=== PATIENT | male | born 1970 | race Hispanic/Latino ===

== ENCOUNTER 2018-01-31 09:10 | Inpatient (IN) | payer OTHER ==
[~2018-01-31] VITALS: Ht 177.8 cm; Wt 103.0 kg
[~2018-01-31 09:10] MED LIST: ASPIRIN EC81 M1 PO; CRESTOR10 M1 PO; LABETALOL HCL100 M1 PO; LOSARTAN POTASS50 M1 PO
--- NOTE | 2018-01-31 09:51 | ED CARDIAC/CP/PALPITATIONS ---
History of Present Illness General Chief Complaint: Chest Pain Stated Complaint: CP, "IT'S TIGHT IN MY CHEST. TINGLING IN FINGERS." Source: patient Exam Limitations: no limitations Vital Signs & Intake/Output Vital Signs & Intake/Output Vital Signs Date Time Temp Pulse Resp B/P B/P Pulse O2 O2 Flow FiO2 Mean Ox Delivery Rate 01/31 1438 98.0 58 20 111/71 99 Room Air 01/31 1213 97.6 56 20 114/66 98 Room Air 01/31 1043 97.2 58 16 134/80 99 Room Air 01/31 0935 96.7 59 14 137/83 97 Room Air Allergies Coded Allergies: No Known Allergies (08/05/17) Reconcile Medications Ascorbate Calcium (Vitamin C) (Unknown Strength) TABLET (Unknown Dose) PO DAILY SUPPLEMENT (Reported) Aspirin (Ecotrin*) 81 MG TABLET.DR 1 TAB PO DAILY HEART HEALTH (Reported) Cholecalciferol (Vitamin D3) (Vitamin D) (Unknown Strength) TABLET (Unknown Dose) PO DAILY SUPPLEMENT (Reported) Cyanocobalamin (Vitamin B-12) (Unknown Strength) TABLET (Unknown Dose) PO DAILY SUPPLEMENT (Reported) Flaxseed Oil (Flax Oil) (Unknown Strength) CAPSULE (Unknown Dose) PO DAILY SUPPLEMENT (Reported) Labetalol HCl 100 MG TABLET 1 TAB PO BID HTN (Reported) Losartan Potassium 50 MG TABLET 1 TAB PO QHS HTN (Reported) [place]-3 Fatty Acids/Fish Oil (Fish Oil 1,000 MG Softgel) (Unknown Strength) CAPSULE (Unknown Dose) PO DAILY SUPPLEMENT (Reported) Triage Note: PT PRESENTS TO THE ER C/O "SERIOUS CHEST PAIN 07/29" PT STATES THAT HIS HANDS ARE TINGLING/NUMBNESS. ONSET OVER 1 MONTH BUT THE CHEST PAIN PER PT IS 2 WEEKS AND PAIN IS INCREASING.. PT STATES HE FEELS TIRED AND HE IS NOT HUNGRY, PT STATES HE HAS BEEN SWEATING ALOT.. PT ALSO C/O DIFFERENT SLOW LIKE BREATHING..PT FEELS LIKE HIS CHEST IS COMPRESSED Triage Nurses Notes Reviewed? yes Onset: Gradual Duration: week(s): (2), changing over time, continues in ED, getting worse Timing: recent history Quality/Severity: severe, pressure, sharp Location: substernal, central Radiation: arms Activities at Onset: activity Prior Chest Pain/Card Workup: no prior chest pain, no prior cardiac workup Modifying Factors: Worsens With: breathing, movement, palpation. Nitro Today/Relief: no nitro taken today Aspirin Today: 81 mg x 4, provided at home (1), provided by ED (3) Associated Symptoms: abdominal pain, diaphoresis, dizziness, shortness of breath , nausea/vomiting, weakness HPI: 47-year-old male past medical history of hypertension, hyperlipidemia, non- insulin-dependent diabetes. Monitor evaluation of chest pain and shortness of breath. Patient states that he's been having chest pain intermittently for the past month. He states that the pain is gradually becoming worse and more frequent. The pain is located diffusely in the chest and radiates to the left arm/shoulder. He describes the pain as pressure that is intermittently sharp and "pinching". He states that it is worse with ambulation and leaning forward resolved somewhat at rest and leaning backwards. He also reports dizziness light headedness of palpitations with exertion. He reports associated shortness of breath diaphoresis numbness and tingling in the left fingers. The pain is worse with breathing. He did see a master technician on 01/29 and a echocardiogram and stress test ordered but not yet completed. He does not drink smoke or use any drugs. No personal history of CORNARY artery disease. He reports decreased appetite and fatigue. No weight loss. He does report family history of heart disease in his father and grandfather. Past History Travel History Traveled to [place] past 21 day No Medical History Any Pertinent Medical History? see below for history Cardiovascular: hypertension, HLD Endocrine: diabetes Surgical History Surgical History: non-contributory Psychosocial History Who do you live with Spouse What is your primary language Persian Tobacco Use: Never used Family History Hx Contributory? No Review of Systems Review of Systems Constitutional: Reports: chills, diaphoresis. EENTM: Reports: no symptoms. Respiratory: Reports: see HPI, short of breath. Cardiovascular: Reports: see HPI, chest pain, palpitations. GI: Reports: abdominal pain, nausea. Genitourinary: Reports: no symptoms. Musculoskeletal: Reports: no symptoms. Skin: Reports: no symptoms. Neurological/Psychological: Reports: no symptoms. Hematologic/Endocrine: Reports: no symptoms. Immunologic/Allergic: Reports: no symptoms. All Other Systems: Reviewed and Negative Physical Exam Physical Exam General Appearance: well developed/nourished, no apparent distress, alert, awake , anxious Head: atraumatic, normal appearance Eyes: Bilateral: normal appearance, PERRL, EOMI. Ears, Nose, Throat: normal pharynx, normal ENT inspection, hearing grossly normal Neck: normal inspection, supple, full range of motion Respiratory: normal breath sounds, no respiratory distress, lungs clear, CHEST WALL TENDERNESS PALPATION OVER THE STERNUM Cardiovascular: regular rate/rhythm, normal peripheral pulses Peripheral Pulses: 2+ radial (R), 2+ radial (L) Gastrointestinal: normal bowel sounds, soft, no organomegaly, tenderness ( EPIGASTRIC ) Back: normal inspection, normal range of motion, no vertebral tenderness Extremities: normal inspection, normal range of motion, no edema Neurologic/Psych: no motor/sensory deficits, awake, alert, oriented x 3, normal gait Skin: intact, normal color, warm/dry Lymphatic: no anterior cervical mimi Core Measures ACS in differential dx? Yes CVA/TIA Diagnosis No Sepsis Present: No Sepsis Focused Exam Completed? No Progress Differential Diagnosis: AMI, aortic dissection, cholecystitis, CHF/pulm edema, costochondritis, musculoskeletal pain, pancreatitis, pericarditis, pneumonia, pneumothorax, PSVT, pulmonary embolism, PUD/GERD, PVCs/PACs, rib fracture, unstable angina Plan of Care: Orders Procedure Date/time Status TROPONIN LEVEL 01/31 1330 Complete EKG 01/31 1330 Active D-DIMER 01/31 1011 Complete Add-on Test (ER Only) 01/31 1008 Active TSH REFLEX 01/31 0954 Complete MAGNESIUM 01/31 0954 Complete LIPASE 01/31 0954 Complete B-TYPE NATRIURETIC PEP (BNP) 01/31 0954 Complete Telemetry/Activities Volunteer 01/31 0953 Active Add-on Test (ER Only) 01/31 0951 Active URINE DRUG SCREEN FOR ER ONLY 01/31 0951 Complete URINALYSIS 01/31 0951 Complete TROPONIN LEVEL 01/31 0921 Complete COMPREHENSIVE METABOLIC PANEL 01/31 0921 Complete CBC WITHOUT DIFFERENTIAL 01/31 0921 Complete EKG 01/31 0912 Active Laboratory Tests 01/31/18 1412: Troponin I < 0.01 01/31/18 1020: Urine Opiates Screen < 100, Methadone Screen < 40, Barbiturate Screen < 60, Ur Phencyclidine Scrn < 6.00, Amphetamines Screen < 100, U Benzodiazepines Scrn < 85, Urine Cocaine Screen < 50, Urine Cannabis Screen < 5.00, Urine Color YEL, Urine Clarity CLEAR, Urine pH 6.5, Ur Specific [place] 1.020, Urine Protein NEG, Urine Ketones NEG, Urine Nitrite NEG, Urine Bilirubin NEG, Urine Urobilinogen 0.2, Ur Leukocyte Esterase NEG, Ur Microscopic EXAM NOT REQUIRED, Urine Hemoglobin NEG, Urine Glucose NEG 01/31/18 1015: D-Dimer High Sensitivty 208 01/31/18 0954: Anion Gap 12, Estimated GFR > 60, BUN/Creatinine Ratio 20.0, Glucose 215 H, Calcium 9.4, Magnesium 2.0, Total Bilirubin 0.7, AST 18, ALT 34, Alkaline Phosphatase 70, Troponin I < 0.01, Yns-D-Efpncqbwybd Pept 28.1, Total Protein 7.0, Albumin 4.2, Globulin 2.8, Albumin/Globulin Ratio 1.5, Lipase 114, TSH &T3 &Free T4 Intrp 0.705, CBC w Diff NO MAN DIFF REQ, RBC 4.65 L, MCV 89.9, MCH 30.8, MCHC 34.2, RDW 13.2, MPV 8.6, Gran % 69.8, Lymphocytes % 22.7, Monocytes % 6.4, Eosinophils % 0.8, Basophils % 0.3, Absolute Granulocytes 4.2, Absolute Lymphocytes 1.4, Absolute Monocytes 0.4, Absolute Eosinophils 0, Absolute Basophils 0 Patient seen and evaluated. He is reporting chest pain gradually worsening over the past month. It is worse on exertion and associated with dizziness lightheadedness presyncope and palpitations while walking. It is also worse with laying backwards he does have some chest wall and epigastric tenderness to palpation. Patient was initially medicated with aspirin and Pepcid and reported some improvement. We'll check some basic labs including d-dimer and troponin. Chest x-ray ordered. EKG ordered. Initial labs are within normal limits chest x-ray is clear EKG shows some nonspecific ST-T wave changes but is not significant change. Patient is reporting continued now worsening chest pain after taking aspirin and PEPCID. Vital signs stable. Nitroglycerin ordered. Also check a CTA of the chest and pelvis to evaluate for aortic dissection. HEART SCORE IS 5-6. Patient may require admission to the hospital for further evaluation of this continued chest pain. Patient reports resolution of chest pain after nitroglycerin. He does still report palpitations and dizziness with exertion. CTA is still pending. Spoke with Dr. Armendariz, it operations specialist master technician, he recommends admission to rule out acute coronary syndrome. CTA is negative for any acute findings. Patient continues to report improved symptoms after nitroglycerin. Vital signs are stable. Patient will be admitted to telemetry to rule out acute coronary syndrome. Case discussed with Dr. Bertrand he agrees. Diagnostic Imaging: Viewed by Me: Radiology Read, CT Scan. Discussed w/RAD: Radiology Read, CT Scan. Radiology Impression: PATIENT: VICTOR MAUNEL JOHNSTON PRESENT AGE: 47 PATIENT ACCOUNT NO: [id number] : 68 LOCATION: [facility] ORDERING PHYSICIAN: Kel ADEN SERVICE DATE: 01/31/18 EXAM TYPE: CAT - CT ABD & PELVIS ANGIOGRAM; CTA CHEST-AORTIC DISSECTION EXAMINATION: CT CHEST WITHOUT AND WITH CONTRAST CT ANGIOGRAM ABDOMEN AND PELVIS CLINICAL INFORMATION: Chest pain, shortness of breath, left arm numbness. COMPARISON: None TECHNIQUE: Multidetector volumetric CT imaging of the chest was obtained before and after the administration of 95 mL of Optiray 320 intravenous contrast without immediate adverse reactions. Multiple axial images were obtained through the abdomen and pelvis. Axial MIP volume rendering provided. Sagittal and coronal reformatted images were obtained. DLP: 1556.0 mGy-cm FINDINGS: LUNGS: There is a 0.7 cm round noncalcified nodule along the fissural surface of the right middle lobe, sagittal image 97 and axial image 28 from series 5. There is a 0.3 cm noncalcified pulmonary nodule in the periphery of the right middle lobe as seen on axial image 38 from series 5. There is a 0.5 cm pleural-based noncalcified pulmonary nodule in the posterior right lower lobe as seen on axial image 38 from series 5. A 0.3 cm pleural-based noncalcified pulmonary nodule along the posterior right lower lobe is seen on axial image 37 from series 5. There is a 0.3 cm noncalcified pulmonary nodule in the right middle lobe, axial image 38. There is a 0.3 cm pleural-based noncalcified pulmonary nodule in the periphery of the left lower lobe, axial image 43 from series 5. There is a 0.3 cm nodular density along the left major fissure, axial image 30 from series 5. There is a 0.5 cm pleural-based noncalcified pulmonary nodule in the lateral aspect of the left upper lobe, axial image 20. There is no focal pulmonary consolidation. No pulmonary mass. MEDIASTINUM: The cardiac size is normal. No pericardial effusion. There is normal diameter of the thoracic and abdominal aorta. There is no evidence of intramural hematoma or dissection of the aorta. The bilateral common iliac arteries, internal and external iliac arteries are also normal in diameter. The pulmonary arteries are normal in diameter. PLEURA: There is no pleural effusion. No pleural mass or thickening. AXILLA: No lymphadenopathy. ABDOMEN AND PELVIS: The liver, spleen, gallbladder, pancreas, and adrenal glands are within normal limits. The kidneys are normal in size. Normal cortical enhancement noted bilaterally. No hydronephrosis. No perinephric fat stranding. There is a 0.5 cm nonobstructing calyceal stone in the upper to mid part of the right kidney, better seen on sagittal image 97. There is a 2.8 cm cortical cyst in the upper pole of the right kidney. There is a 0.4 cm nonobstructing stone in the upper to mid part of the left kidney, sagittal image 37. The ureters are not dilated. No ureteral stone. The urinary bladder is full and unremarkable. The stomach, duodenum, small-bowel loops and colon are unremarkable. The appendix is visualized and without evidence of acute appendicitis. There is no free fluid or free air in the abdomen or pelvis. No mesenteric, retroperitoneal or pelvic adenopathy. The prostate and seminal vesicles are unremarkable. Partial visualization of surgical hardware of the anterior lower cervical spine fusion. No aggressive bony lesion or acute bone fracture. IMPRESSION: No evidence of aortic aneurysm or dissection in the chest or abdomen. No acute PE. Multiple bilateral noncalcified pulmonary nodules. Follow up based on Fleischner criteria is suggested. Bilateral nonobstructing renal stones. Right renal cortical cyst. Various management parameters for solitary pulmonary nodules are in the literature. According to the Fleischner Society, recommendations for pulmonary nodules are as follows: Nodule size < or = to 4 mm in LOW RISK PATIENTS: No follow up needed. Nodule size < or = to 4 mm in HIGH RISK PATIENTS: Follow up CT at 12 months; if unchanged, no further follow up. Nodule size > 4-6 mm in LOW RISK PATIENTS: Follow up CT at 12 months; if unchanged, no further follow up. Nodule size > 4-6 mm in HIGH RISK PATIENTS: Initial follow up CT at 6-12 months, then at 18-24 months if no change. Nodule size > 6-8 mm in LOW RISK PATIENTS: Initial follow up CT at 6-12 months, then at 18-24 months if no change. Nodule size > 6-8 mm in HIGH RISK PATIENTS: Initial follow up CT at 3-6 months, then 9- 12 months and 24 months if no change. Nodule size > 8 mm in LOW RISK PATIENTS: Follow up CT at around 3, 9, and 24 months, dynamic contrast-enhanced CT, PET, and/or biopsy. Nodule size > 8 mm in HIGH RISK PATIENTS: Same as for low-risk patients. DICTATED BY: Antionette Walker MD DATE/TIME DICTATED:01/31/181421 LACQUER POLISHER:ELIAS DATE/TIME TRANSCRIBED:01/31/181421 CONFIDENTIAL, DO NOT COPY WITHOUT APPROPRIATE AUTHORIZATION. <Electronically signed in Other Vendor System> SIGNED BY: Antionette Walker MD 01/31/18 1518 CXR Impression: PATIENT: VICTOR MANUEL JOHNSTON PRESENT AGE: 47 PATIENT ACCOUNT NO: [id number] : 68 LOCATION: [facility] ORDERING PHYSICIAN: Kel ADEN SERVICE DATE: 01/31/18 EXAM TYPE: RAD - XRY-CHEST XRAY, TWO VIEWS EXAMINATION: XR CHEST CLINICAL INFORMATION: Chest pain, shortness of breath. COMPARISON: Chest done on 05/02/2014. TECHNIQUE: 2 views of the chest were obtained. FINDINGS: No significant abnormality is noted involving the heart , lungs, mediastinum, bony thorax or soft tissues. IMPRESSION: No acute cardiopulmonary disease, unchanged since prior study. Please note that previous CT detected several subcentimeter pulmonary nodules are not reproduced in the current study likely related to difference in technique. DICTATED BY: Joon Ortiz MD DATE/TIME DICTATED:01/31/181028 LACQUER POLISHER:ELIAS DATE/ TIME TRANSCRIBED:01/31/181028 CONFIDENTIAL, DO NOT COPY WITHOUT APPROPRIATE AUTHORIZATION. Initial ED EKG: normal sinus rhythm, nonspecific ST T wave chg (INFERIOR) Prior EKG: unchanged Repeat EKG: unchanged Rhythm Strip: normal sinus rhythm Departure Departure Disposition: STILL A PATIENT Condition: Stable Clinical Impression Primary Impression: Chest pain Qualifiers: Chest pain type: unspecified Qualified Code: R07.9 - Chest pain, unspecified Referrals: Lilli SALDAÑA,Paddy Heard (PCP/Family) Departure Forms: Customer Survey General Discharge Information Admission Note Spoke With: Valeriy Woodard MD Documentation of Exam: Documentation of any treatments & extenuating circumstances including Concerns Regarding Discharge (functional status, medication knowledge or non-compliance, living conditions, etc.) that warrant an admission rather than observation: Chest pain worse on exertion responsive to nitroglycerin multiple risk factors and family history [Telemetry, serial labs, serial EKGs, cardiology consult, echocardiogram, stress test, medication adjustment] Critical Care Note Critical Care Note Critical Care Time: non-applicable
[2018-01-31 10:05] LABS: ABSOLUTE BASOPHIL COUNT 0 /CUMM (0.0-0.2); ABSOLUTE EOSINOPHIL COUNT 0 /CUMM (0.0-0.7); ABSOLUTE GRANULOCYTE CT 4.2 /CUMM (1.4-6.5); ABSOLUTE LYMPH COUNT 1.4 /CUMM (1.2-3.4); ABSOLUTE MONOCYTE COUNT 0.4 /CUMM (0.10-0.60); BASOPHIL % 0.3 % (0.0-2.0); EOSINOPHIL % 0.8 % (0-5); GRANULOCYTE % 69.8 % (42.2-75.2); HEMATOCRIT 41.8 % (42-52); MEAN CORPUSCULAR HGB 30.8 PG (27.0-31.0); MEAN CORPUSCULAR HGB CONC 34.2 G/DL (33.0-37.0); MEAN CORPUSCULAR VOLUME 89.9 FL (80.0-94.0); MEAN PLATELET VOLUME 8.6 FL (7.4-10.4); PLATELET COUNT 167 /CUMM (130-400); RBC DISTRIBUTION WIDTH 13.2 % (11.5-14.5); RED BLOOD CELL CT 4.65 /CUMM (4.70-6.10); WHITE BLOOD CELL COUNT 6.1 /CUMM (4.8-10.8)
--- NOTE | 2018-01-31 10:35 | RADIOLOGY REPORT ---
EXAMINATION: XR CHEST CLINICAL INFORMATION: Chest pain, shortness of breath. COMPARISON: Chest done on 05/02/2014. TECHNIQUE: 2 views of the chest were obtained. FINDINGS: No significant abnormality is noted involving the heart, lungs, mediastinum, bony thorax or soft tissues. IMPRESSION: No acute cardiopulmonary disease, unchanged since prior study. Please note that previous CT detected several subcentimeter pulmonary nodules are not reproduced in the current study likely related to difference in technique.
[2018-01-31] MEDS ORDERED: VITAMIN C500 M6 PO (12:36)
[2018-01-31] MEDS ORDERED: VITAMIN B-121000 MC3 PO (12:36)
[2018-01-31] MEDS ORDERED: VITAMIN D2000 UNI1 PO (12:36)
[2018-01-31] MEDS ORDERED: FLAX OIL1000 M1 PO (12:37)
[2018-01-31] MEDS ORDERED: FISH OIL 1,0001 EAC1 PO (12:37)
--- NOTE | 2018-01-31 15:18 | CT SCAN REPORT ---
EXAMINATION: CT CHEST WITHOUT AND WITH CONTRAST CT ANGIOGRAM ABDOMEN AND PELVIS CLINICAL INFORMATION: Chest pain, shortness of breath, left arm numbness. COMPARISON: None TECHNIQUE: Multidetector volumetric CT imaging of the chest was obtained before and after the administration of 95 mL of Optiray 320 intravenous contrast without immediate adverse reactions. Multiple axial images were obtained through the abdomen and pelvis. Axial MIP volume rendering provided. Sagittal and coronal reformatted images were obtained. DLP: 1556.0 mGy-cm FINDINGS: LUNGS: There is a 0.7 cm round noncalcified nodule along the fissural surface of the right middle lobe, sagittal image 97 and axial image 28 from series 5. There is a 0.3 cm noncalcified pulmonary nodule in the periphery of the right middle lobe as seen on axial image 38 from series 5. There is a 0.5 cm pleural-based noncalcified pulmonary nodule in the posterior right lower lobe as seen on axial image 38 from series 5. A 0.3 cm pleural-based noncalcified pulmonary nodule along the posterior right lower lobe is seen on axial image 37 from series 5. There is a 0.3 cm noncalcified pulmonary nodule in the right middle lobe, axial image 38. There is a 0.3 cm pleural-based noncalcified pulmonary nodule in the periphery of the left lower lobe, axial image 43 from series 5. There is a 0.3 cm nodular density along the left major fissure, axial image 30 from series 5. There is a 0.5 cm pleural-based noncalcified pulmonary nodule in the lateral aspect of the left upper lobe, axial image 20. There is no focal pulmonary consolidation. No pulmonary mass. MEDIASTINUM: The cardiac size is normal. No pericardial effusion. There is normal diameter of the thoracic and abdominal aorta. There is no evidence of intramural hematoma or dissection of the aorta. The bilateral common iliac arteries, internal and external iliac arteries are also normal in diameter. The pulmonary arteries are normal in diameter. PLEURA: There is no pleural effusion. No pleural mass or thickening. AXILLA: No lymphadenopathy. ABDOMEN AND PELVIS: The liver, spleen, gallbladder, pancreas, and adrenal glands are within normal limits. The kidneys are normal in size. Normal cortical enhancement noted bilaterally. No hydronephrosis. No perinephric fat stranding. There is a 0.5 cm nonobstructing calyceal stone in the upper to mid part of the right kidney, better seen on sagittal image 97. There is a 2.8 cm cortical cyst in the upper pole of the right kidney. There is a 0.4 cm nonobstructing stone in the upper to mid part of the left kidney, sagittal image 37. The ureters are not dilated. No ureteral stone. The urinary bladder is full and unremarkable. The stomach, duodenum, small-bowel loops and colon are unremarkable. The appendix is visualized and without evidence of acute appendicitis. There is no free fluid or free air in the abdomen or pelvis. No mesenteric, retroperitoneal or pelvic adenopathy. The prostate and seminal vesicles are unremarkable. Partial visualization of surgical hardware of the anterior lower cervical spine fusion. No aggressive bony lesion or acute bone fracture. IMPRESSION: No evidence of aortic aneurysm or dissection in the chest or abdomen. No acute PE. Multiple bilateral noncalcified pulmonary nodules. Follow up based on Fleischner criteria is suggested. Bilateral nonobstructing renal stones. Right renal cortical cyst. Various management parameters for solitary pulmonary nodules are in the literature. According to the Fleischner Society, recommendations for pulmonary nodules are as follows: Nodule size < or = to 4 mm in LOW RISK PATIENTS: No follow up needed. Nodule size < or = to 4 mm in HIGH RISK PATIENTS: Follow up CT at 12 months; if unchanged, no further follow up. Nodule size > 4-6 mm in LOW RISK PATIENTS: Follow up CT at 12 months; if unchanged, no further follow up. Nodule size > 4-6 mm in HIGH RISK PATIENTS: Initial follow up CT at 6-12 months, then at 18-24 months if no change. Nodule size > 6-8 mm in LOW RISK PATIENTS: Initial follow up CT at 6-12 months, then at 18-24 months if no change. Nodule size > 6-8 mm in HIGH RISK PATIENTS: Initial follow up CT at 3-6 months, then 9-12 months and 24 months if no change. Nodule size > 8 mm in LOW RISK PATIENTS: Follow up CT at around 3, 9, and 24 months, dynamic contrast-enhanced CT, PET, and/or biopsy. Nodule size > 8 mm in HIGH RISK PATIENTS: Same as for low-risk patients.
--- NOTE | 2018-01-31 16:32 | History & Physical ---
Mark SALDAÑA,Rupalining 01/31/18 1631: General Information and [facility] MD Statement: I have seen and personally examined VICTOR MANUEL JOHNSTON and documented this H&P. The patient is a 47 year old M who presented with a patient stated chief complaint of [CP]. Source of Information: patient, family, old records Exam Limitations: no limitations History of Present Illness: The sees a 47-year-old male with past medical history significant for hypertension, hyperlipidemia, ggc-tcagtnq-uuzhcmkhy diabetes, nephrolithiasis, hypogonadism, obstructive sleep apnea, cervical disc herniation, who comes in for chief complaint of chest pain. Patient describes it as a "pinch in my heart " and as a tightness in his chest can get up to a 10 out of 10. These episodes started about 2 weeks ago and the pain has been persistent since but is exacerbated by exertion or emotion. Pain has gradually gotten worse over the past 2 weeks and is associated with diaphoresis, left-sided neck pain and hand tingling. He also states that the pain gets worse with deep inspiration and sometimes wakes him up at night. He denies a positional nature to the pain and states that nothing really makes it better, however he did respond to nitroglycerin in ED. He saw his project management analyst on January 29 for same complaint. At that time he was scheduled for a stress echo and an echo cardiogram which are yet to be done. Today, he took aspirin at home and received 2 in the ED. He states that he has been compliant with his blood pressure and cardiac medications. He denies any drinking smoking or IV drug abuse. He does state that he works 2 jobs and that his work has been getting increasingly stressful, particularly over the past 2 weeks. Family history significant for a brother with what sounds like CHF and a prolonged 6 week hospitalization. Grandfather had AK and father has diabetes. Allergies/Medications Allergies: Coded Allergies: No Known Allergies (08/05/17) Home Med list Ascorbate Calcium (Vitamin C) (Unknown Strength) TABLET (Unknown Dose) PO DAILY SUPPLEMENT (Reported) Aspirin (Ecotrin*) 81 MG TABLET. 1 TAB PO DAILY HEART HEALTH (Reported) Cholecalciferol (Vitamin D3) (Vitamin D) (Unknown Strength) TABLET (Unknown Dose) PO DAILY SUPPLEMENT (Reported) Cyanocobalamin (Vitamin B-12) (Unknown Strength) TABLET (Unknown Dose) PO DAILY SUPPLEMENT (Reported) Flaxseed Oil (Flax Oil) (Unknown Strength) CAPSULE (Unknown Dose) PO DAILY SUPPLEMENT (Reported) Labetalol HCl 100 MG TABLET 1 TAB PO BID HTN (Reported) Losartan Potassium 50 MG TABLET 1 TAB PO QHS HTN (Reported) [place]-3 Fatty Acids/Fish Oil (Fish Oil 1,000 MG Softgel) (Unknown Strength) CAPSULE (Unknown Dose) PO DAILY SUPPLEMENT (Reported) Compliance With Home Meds: GOOD Past History Travel History Traveled to [place] past 21 day No Medical History Cardiovascular: hypertension, HLD Endocrine: diabetes Surgical History Surgical History: non-contributory Review of Systems Review of Systems Constitutional: Reports: see HPI. Exam & Diagnostic Data Last 24 Hrs of Vital Signs/I&O Vital Signs Date Time Temp Pulse Resp B/P B/P Pulse O2 O2 Flow FiO2 Mean Ox Delivery Rate 01/31 2246 98.2 61 18 116/74 99 Room Air 01/31 2138 98.0 57 16 113/76 99 Room Air 01/31 2134 57 113/76 01/31 2134 57 113/76 01/31 1849 98.1 57 18 140/80 99 Room Air 01/31 1438 98.0 58 20 111/71 99 Room Air 01/31 1213 97.6 56 20 114/66 98 Room Air 01/31 1043 97.2 58 16 134/80 99 Room Air 01/31 0935 96.7 59 14 137/83 97 Room Air Intake & Output 01/31 1600 01/31 0800 01/31 0000 Intake Total Output Total Balance Patient 103.419 kg Weight Weight Reported by Patient Measurement Method Physical Exam General Appearance Alert, Oriented X3, Cooperative, Mild Distress HEENT Atraumatic, PERRLA, EOMI Neck Supple, No JVD Cardiovascular Regular Rate, Normal S1, Normal S2, No Murmurs Lungs Normal Air Movement Abdomen Soft, No Tenderness Last 24 Hrs of Labs/David: Laboratory Tests 01/31/18 1412: Troponin I < 0.01 01/31/18 1020: Urine Opiates Screen < 100, Methadone Screen < 40, Barbiturate Screen < 60, Ur Phencyclidine Scrn < 6.00, Amphetamines Screen < 100, U Benzodiazepines Scrn < 85, Urine Cocaine Screen < 50, Urine Cannabis Screen < 5.00, Urine Color YEL, Urine Clarity CLEAR, Urine pH 6.5, Ur Specific [place] 1.020, Urine Protein NEG, Urine Ketones NEG, Urine Nitrite NEG, Urine Bilirubin NEG, Urine Urobilinogen 0.2, Ur Leukocyte Esterase NEG, Ur Microscopic EXAM NOT REQUIRED, Urine Hemoglobin NEG, Urine Glucose NEG 01/31/18 1015: D-Dimer High Sensitivty 208 01/31/18 0954: Anion Gap 12, Estimated GFR > 60, BUN/Creatinine Ratio 20.0, Glucose 215 H, Calcium 9.4, Magnesium 2.0, Total Bilirubin 0.7, AST 18, ALT 34, Alkaline Phosphatase 70, Troponin I < 0.01, Qwv-U-Itjspmvqbcd Pept 28.1, Total Protein 7.0, Albumin 4.2, Globulin 2.8, Albumin/Globulin Ratio 1.5, Lipase 114, TSH &T3 &Free T4 Intrp 0.705, CBC w Diff NO MAN DIFF REQ, RBC 4.65 L, MCV 89.9, MCH 30.8, MCHC 34.2, RDW 13.2, MPV 8.6, Gran % 69.8, Lymphocytes % 22.7, Monocytes % 6.4, Eosinophils % 0.8, Basophils % 0.3, Absolute Granulocytes 4.2, Absolute Lymphocytes 1.4, Absolute Monocytes 0.4, Absolute Eosinophils 0, Absolute Basophils 0 Assessment/Plan Assessment: This is a 47-year-old male past medical history significant for hypertension, hyperlipidemia, yqf-odlxllk-lpzhukzbr diabetes, nephrolithiasis, hypogonadism, FRANCES, who comes in for chief complaint of chest pain. Patient's ADAM score 3 giving him 13% risk at 14 days of: all-cause mortality, new or recurrent AK, or severe recurrent ischemia requiring urgent revascularization. At this time, patient has significant CAD risk factors including Hypertension, hyperlipidemia and diabetes, and his chest pain is concerning. He does have some atypical features including pleuritic component, but given his history, the exertional componenet and worsening chest pain we will treat pt as [place]. However, a differential diagnosis other than above would include myocarditis/pericarditis, or esophageal spasm. Plan: Chest pain: * Troponin and EKG * Heparin drip * Nitropaste * Echocardiogram * Appreciate cardiology recs * Continue labetalol 100 mg daily * Continue losartan 50 mg by mouth daily * Continue aspirin * Start statin * Start Clopidogrel: load with 300 and con't 75mg daily. HTN: * Cont labetalol and Losartan Incidental findings of pulmonary nodules on CT: Will require out pt follow up Diabetes: Pt not on any regimen at home * RISS * FS * HH diet * Hba1c As Ranked By This Provider Problem List: 1. Chest pain Qualifiers Chest pain type: unspecified Qualified Code: R07.9 - Chest pain, unspecified Core Measures/Misc (07/06) Acute Coronary Syndrome ACS Diagnosis: Yes Congestive Heart Failure Congestive Heart Failure Diagnosis No Cerebrovascular Accident CVA/TIA Diagnosis: No VTE (View Protocol) VTE Risk Factors Acute Medical Illness No Mechanical VTE Prophylaxis d/t N/A MechProphylax Ordered No VTE Pharm Prophylaxis d/t NA PharmProphylax ordered Sepsis (View protocol) Sepsis Present: No Valeriy Woodard MD 02/01/18 0713: Attending MD Review Statement Attending Statement Attending MD Statement: examined this patient, discuss w/resident/PA/RESOLUTION ANALYST, agreed w/resident/PA/RESOLUTION ANALYST, discussed with family, reviewed EMR data (avail), reviewed images, amended to note Attending Assessment/Plan: The patient is a 47 yo male with h/o HTN, HL, DM2, FRANCES (on CPAP), nephrolithiasis, hypogonadism, and cervical disc disease who presented in the [facility] ED with c/o substernal chest pain 07/29 that began approximately 2 weeks prior. Pain was exacerbated by exertion and stress and resolved with rest. He presented in ED due to persistent pain. He had seen his project management analyst 01/29 who planned OP ECHO/stress. In the ED pain was relieved by SL NTG. At the time of my exam there were no ECG changes with pain and 2 troponin I levels were negative. He had been seen by Dr. Armendariz in ED who recommended admit and treat as possible ACS. Physical Exam: VS: T 98.2, P 60, R 18, BP 116/74, PO 99% RA HEENT: eyes- PERRLA, EOMI nadya- moist mucosa Neck: no bruits or JVD Chest: clear Cor: RRR nl S1, S2 w/o murm, no chest wall tenderness Abd: BS+, soft, NT, - HSM Ext: no edema, pulses 2+ Neuro: alert & oriented x 2, non-focal exam Labs/Tests- as above Impression/Plan: #Chest Pain- as above, no ECG changes and 2 troponin levels negative, however patient has multiple cardiac risk factors and pain relieved by NTG. Cannot exclude esophageal spasm as cause, however patient has no GI symptoms (no GERD). Seen by Dr. Armendariz and being treated as possible ACS. Plan: Admit to telemetry floor and follow-up troponin level. Cardiology consult - Dr. Armendariz (done). ASA/Plavix/Lovenox/Statin, etc as per Dr. Armendariz. Agree with Nitropaste as there is small residual chest discomfort. TTE in morning. Pending clinical course may need stress Myoview. #HTN- on Labetalol and Losartan. Plan: Continue above meds. #DM2- ?not on meds. Glucose 215 on admission. Plan: Check glucoscans- consistent carbohydrate diet.
--- NOTE | 2018-01-31 18:31 | Cons- Cardiology ---
General Information and HPI Consulting Request Date of Consult: 01/31/18 Requested By: Valeriy Woodard MD Reason for Consult: Recurrent chest discomfort. Source of Information: patient, family, old records Exam Limitations: no limitations History of Present Illness: Mr. Jazmin Sevilla is a 47-year-old male history of obesity, obstructive sleep apnea on CPAP, hypertension, dyslipidemia, and "borderline" diabetes mellitus who presented to the ED today 01/31/2018 after experiencing severe substernal chest pressure with radiation to the left side of his neck, left shoulder, and down left arm into his hand with associated diaphoresis and mild shortness of breath. He states that he began feeling poorly approximately 1 month ago when he would experience fleeting "prickling" sensations in his chest. The situation changed approximately 2 weeks ago when he began experiencing the pressure-like discomfort in the substernal region with radiation and associated symptoms as described above, both lesser duration and intensity. Episodes have been worse with exertion and had been clustering closer and closer together with increased intensity and duration. Most recently he has been experiencing chest discomfort at rest. In the ED while experiencing the discomfort he was given SL NTG and had prompt relief of the discomfort. He denies any known history of coronary, valvular, dysrhythmic/conduction disease, or cardiomyopathy. Allergies/Medications Allergies: Coded Allergies: No Known Allergies (08/05/17) Home Med List: Ascorbate Calcium (Vitamin C) (Unknown Strength) TABLET (Unknown Dose) PO DAILY SUPPLEMENT (Reported) Aspirin (Ecotrin*) 81 MG TABLET.DR 1 TAB PO DAILY HEART HEALTH (Reported) Cholecalciferol (Vitamin D3) (Vitamin D) (Unknown Strength) TABLET (Unknown Dose) PO DAILY SUPPLEMENT (Reported) Cyanocobalamin (Vitamin B-12) (Unknown Strength) TABLET (Unknown Dose) PO DAILY SUPPLEMENT (Reported) Flaxseed Oil (Flax Oil) (Unknown Strength) CAPSULE (Unknown Dose) PO DAILY SUPPLEMENT (Reported) Labetalol HCl 100 MG TABLET 1 TAB PO BID HTN (Reported) Losartan Potassium 50 MG TABLET 1 TAB PO QHS HTN (Reported) [place]-3 Fatty Acids/Fish Oil (Fish Oil 1,000 MG Softgel) (Unknown Strength) CAPSULE (Unknown Dose) PO DAILY SUPPLEMENT (Reported) Review of Systems Review of Systems: A 14 point system review was obtained and was noncontributory, other than as above. Past History Travel History Traveled to [place] past 21 day No Medical History Cardiovascular: hypertension, HLD Renal: nephrolithiasis (status post lithotripsies) Musculoskeletal: degenerative cervical spine disease. Endocrine: diabetes Surgical History Surgical History: non-contributory Exam & Diagnostic Data Vital Signs and I&O Vital Signs Date Time Temp Pulse Resp B/P B/P Pulse O2 O2 Flow FiO2 Mean Ox Delivery Rate 01/31 1438 98.0 58 20 111/71 99 Room Air 01/31 1213 97.6 56 20 114/66 98 Room Air 01/31 1043 97.2 58 16 134/80 99 Room Air 01/31 0935 96.7 59 14 137/83 97 Room Air Intake & Output 01/31 1600 01/31 0800 01/31 0000 01/30 1600 01/30 0800 01/30 0000 Intake Total Output Total Balance Patient 228 lb Weight Weight Reported by Patient Measurement Method Physical Exam: Well-developed, overweight middle-aged male in no acute distress with nasal oxygen in place. Vital signs: See above. HEENT: Normocephalic, atraumatic, EOMI, moist his membranes. Neck: No JVD, no bruits. Lungs: Clear to auscultation bilaterally. Heart: S1, S2 with a soft (grade 1/6) systolic murmur. No gallop or rub. PMI fifth ICS at MCL. Abdomen: Soft, nontender, positive bowel sounds. Extremities: No edema. Labs/David Results: Laboratory Tests 01/31 01/31 01/31 1412 1020 1015 Chemistry Troponin I (<0.11 ng/ml) < 0.01 Coagulation D-Dimer High Sensitivty (0 - 243 ng/ml) 208 Toxicology Urine Opiates Screen (>2000 NG/ML) < 100 Methadone Screen (>300 NG/ML) < 40 Barbiturate Screen (>200 NG/ML) < 60 Ur Phencyclidine Scrn (>25 NG/ML) < 6.00 Amphetamines Screen (>1000 NG/ML) < 100 U Benzodiazepines Scrn (>200 NG/ML) < 85 Urine Cocaine Screen (>300 NG/ML) < 50 Urine Cannabis Screen (>50 NG/ML) < 5.00 Urines Urine Color (YEL,AMB,STR) YEL Urine Clarity (CLEAR) CLEAR Urine pH (5.0 - 8.0) 6.5 Ur Specific [place] (1.001 - 1.035) 1.020 Urine Protein (NEG,<30 MG/DL) NEG Urine Ketones (NEG) NEG Urine Nitrite (NEG) NEG Urine Bilirubin (NEG) NEG Urine Urobilinogen (0.1 - 1.0 EU/dl) 0.2 Ur Leukocyte Esterase (NEG) NEG Ur Microscopic EXAM NOT REQUIRED Urine Hemoglobin (NEG) NEG Urine Glucose (N MG/DL) NEG 01/31 0954 Chemistry Sodium (137 - 145 mmol/L) 140 Potassium (3.5 - 5.1 mmol/L) 4.2 Chloride (98 - 107 mmol/L) 103 Carbon Dioxide (22 - 30 mmol/L) 25 Anion Gap (5 - 16) 12 BUN (9 - 20 mg/dL) 16 Creatinine (0.7 - 1.2 mg/dL) 0.8 Estimated GFR (>60 ml/min) > 60 BUN/Creatinine Ratio (7 - 25 %) 20.0 Glucose (65 - 99 mg/dL) 215 H Calcium (8.4 - 10.2 mg/dL) 9.4 Magnesium (1.6 - 2.3 mg/dL) 2.0 Total Bilirubin (0.2 - 1.3 mg/dL) 0.7 AST (17 - 59 U/L) 18 ALT (21 - 72 U/L) 34 Alkaline Phosphatase (< 127 U/L) 70 Troponin I (<0.11 ng/ml) < 0.01 Ovl-A-Vewanipdveb Pept (<125 pg/mL) 28.1 Total Protein (6.3 - 8.2 g/dL) 7.0 Albumin (3.5 - 5.0 g/dL) 4.2 Globulin (1.9 - 4.2 gm/dL) 2.8 Albumin/Globulin Ratio (1.1 - 2.2 %) 1.5 Lipase (23 - 300 U/L) 114 TSH &T3 &Free T4 Intrp (0.27 - 4.20 uIU/mL) 0.705 Hematology CBC w Diff NO MAN DIFF REQ WBC (4.8 - 10.8 /CUMM) 6.1 RBC (4.70 - 6.10 /CUMM) 4.65 L Hgb (14.0 - 18.0 G/DL) 14.3 Hct (42 - 52 %) 41.8 L MCV (80.0 - 94.0 FL) 89.9 MCH (27.0 - 31.0 PG) 30.8 MCHC (33.0 - 37.0 G/DL) 34.2 RDW (11.5 - 14.5 %) 13.2 Plt Count (130 - 400 /CUMM) 167 MPV (7.4 - 10.4 FL) 8.6 Gran % (42.2 - 75.2 %) 69.8 Lymphocytes % (20.5 - 51.1 %) 22.7 Monocytes % (1.7 - 9.3 %) 6.4 Eosinophils % (0 - 5 %) 0.8 Basophils % (0.0 - 2.0 %) 0.3 Absolute Granulocytes (1.4 - 6.5 /CUMM) 4.2 Absolute Lymphocytes (1.2 - 3.4 /CUMM) 1.4 Absolute Monocytes (0.10 - 0.60 /CUMM) 0.4 Absolute Eosinophils (0.0 - 0.7 /CUMM) 0 Absolute Basophils (0.0 - 0.2 /CUMM) 0 Diagnostic Data EKG Results 01/31/2018: Sinus bradycardia and borderline inferior T wave abnormalities. No significant change when compared to earlier tracing from 01/31/2018 or remote tracing from 05/30/2010. CXR Results 01/31/2018: No acute cardiopulmonary disease, unchanged since prior study. Please note that previous CT detected several subcentimeter pulmonary nodules are not reproduced in the current study likely related to difference in technique. Other Results Chest CTA and abdominal/pelvic CT 01/31/2018: No evidence of aortic aneurysm or dissection in the chest or abdomen. No acute PE. Multiple bilateral noncalcified pulmonary nodules. Follow up based on Fleischner criteria is suggested. Bilateral nonobstructing renal stones. Right renal cortical cyst. Assessment/Plan Assessment/Plan [id number]-w/ hx of obesity, FRANCES on CPAP, HTN, HLD, and "borderline" DM who presented to the ED today 01/31/2018 after experiencing severe SSCP w/ radiation to the L side of his neck, L shoulder, and down his L arm into his w/ assoc diaphoresis and mild SOB that has been progressive over the past couple of weeks with increasing frequency, intensity, and duration that improved following the administration of SL NTG 0.4 in the ED. Mr. Sevilla's recent symptoms are of great concern and suggestive of unstable angina pectoris. Briefly discussed management options including cardiac catheterization with an eye towards revascularization vs nuclear stress testing. He will be discussing this with his family. Recommendations: * Admit to telemetry, follow-up troponins, follow-up ECGs. * IV unfractionated heparin (or enoxaparin) if no contraindication. * Increase ecASA from 81 mg daily to 162 mg daily. * Start clopidogrel with 300 mg loading followed by 75 mg daily. * Continue labetalol 100 mg twice daily and losartan 50 mg daily. * Start atorvastatin 40 mg daily. * Echocardiogram to assess left ventricular systolic/diastolic function, with ventricular hypertrophy, etc. * DVT prophylaxis. Consult Acknowledgment - Thank you for your consult request.
--- NOTE | 2018-01-31 21:54 | Admission Certification ---
Admission Certification Certification Statement - As attending physician, I certify that at the time of - admission, based on clinical presentation, severity of - symptoms, need for further diagnostic testing and - therapeutic interventions, and risk of adverse outcomes - without in-hospital treatment, in my clinical assessment, - this patient requires an acute hospital stay for a minimum - of two nights or longer. I have also considered psychsocial - factors such as support system, advanced age, financial - issues, cognitive issues, and failed out-patient treatments, - past re-admission history, safety of patient, and lack of - compliance as applicable. Specific rationale supporting this admission is: The patient presents with substernal chest pain relieved by NTG and concern regarding ACS. Needs admission to telemetry for close cardiac monitoring, Cardiology consult (Dr. Armendariz), serial EKG's/Troponin levels. Plavix, Lovenox, ASA, statin as per Cardiology.
[2018-02-01 02:31] LABS: PTT 40 SEC (25-37)
[2018-02-01 06:00] VITALS: BP 104/68
[2018-02-01 08:17] LABS: ABSOLUTE BASOPHIL COUNT 0 /CUMM (0.0-0.2); ABSOLUTE EOSINOPHIL COUNT 0.1 /CUMM (0.0-0.7); ABSOLUTE GRANULOCYTE CT 3.6 /CUMM (1.4-6.5); ABSOLUTE LYMPH COUNT 1.7 /CUMM (1.2-3.4); ABSOLUTE MONOCYTE COUNT 0.5 /CUMM (0.10-0.60); BASOPHIL % 0.4 % (0.0-2.0); EOSINOPHIL % 1.1 % (0-5); GRANULOCYTE % 60.6 % (42.2-75.2); HEMATOCRIT 41.2 % (42-52); MEAN CORPUSCULAR HGB 30.6 PG (27.0-31.0); MEAN CORPUSCULAR HGB CONC 34.2 G/DL (33.0-37.0); MEAN CORPUSCULAR VOLUME 89.7 FL (80.0-94.0); MEAN PLATELET VOLUME 9.3 FL (7.4-10.4); PLATELET COUNT 166 /CUMM (130-400); RBC DISTRIBUTION WIDTH 13.6 % (11.5-14.5); RED BLOOD CELL CT 4.59 /CUMM (4.70-6.10); WHITE BLOOD CELL COUNT 5.9 /CUMM (4.8-10.8)
--- NOTE | 2018-02-01 08:30 | PN- Housestaff ---
Shon SALDAÑA,Darshan 02/01/18 0830: Subjective Follow-up For: Chest pain Hyperglycemia Tele-Events Since Last Visit: Sinus rhythm, HR 50s60s Subjective: Patient was seen and examined at bedside. He is resting comfortably. He had no acute events overnight. He did state that he had mild chest pain this morning with some tingling of his left fingers, the symptoms resolved with a nitroglycerin patch. Patient is currently pain-free. He has no complaints at this time. Review of Systems Constitutional: Reports: no symptoms. EENTM: Reports: no symptoms. Cardiovascular: Reports: chest pain (resolved with nitro). Denies: palpitations. Respiratory: Reports: no symptoms. Gastrointestinal: Reports: no symptoms. Genitourinary: Reports: no symptoms. Musculoskeletal: Reports: no symptoms. Objective Last 24 Hrs of Vital Signs/I&O Vital Signs Date Time Temp Pulse Resp B/P B/P Pulse O2 O2 Flow FiO2 Mean Ox Delivery Rate 02/01 0808 60 104/68 02/01 0808 60 104/68 02/01 0600 98.6 60 18 104/68 98 01/31 2246 98.2 61 18 116/74 99 Room Air 01/31 2138 98.0 57 16 113/76 99 Room Air 01/31 2134 57 113/76 01/31 2134 57 113/76 01/31 1849 98.1 57 18 140/80 99 Room Air 01/31 1438 98.0 58 20 111/71 99 Room Air 01/31 1213 97.6 56 20 114/66 98 Room Air 01/31 1043 97.2 58 16 134/80 99 Room Air 01/31 0935 96.7 59 14 137/83 97 Room Air Intake & Output 02/01 1600 02/01 0800 02/01 0000 Intake Total 603 Output Total 650 Balance -47 Intake, IV 483 Intake, Oral 120 Output, Urine 650 Patient 228 lb Weight Weight Bed scale Measurement Method Physical Exam General Appearance: Alert, Oriented X3, Cooperative, No Acute Distress Skin Temp/Moisture Exam: Warm/Dry Sepsis Skin Exam (color): Normal for Ethnicity Cardiovascular: Regular Rate, Normal S1, Normal S2 Lungs: Clear to Auscultation, Normal Air Movement Abdomen: Normal Bowel Sounds, Soft, No Tenderness Neurological: Normal Speech, Normal Tone, Sensation Intact Extremities: No Clubbing, No Cyanosis, No Edema Current Medications: Current Medications Sig/Edgardo Start time Last Medication Dose Route Stop Time Status Admin Acetaminophen 500 MG Q6P PRN 01/31 1830 AC PO Acetaminophen 0 .STK-MED ONE 01/31 1235 DC PO Acetaminophen 975 MG ONCE ONE 01/31 1230 DC 01/31 PO 01/31 1231 1230 Aspirin 162 MG DAILY 02/01 0900 AC 02/01 PO 0807 Aspirin 0 .STK-MED ONE 01/31 1023 DC PO Aspirin 243 MG ONCE ONE 01/31 1000 DC 01/31 PO 01/31 1001 1018 Atorvastatin Calcium 40 MG 1700 02/01 1700 AC PO Clopidogrel Bisulfate 75 MG DAILY 02/01 0900 CAN PO Clopidogrel Bisulfate 300 MG ONCE ONE 01/31 1845 DC 01/31 PO 01/31 1846 2134 Famotidine 0 .STK-MED ONE 01/31 1022 DC PO Famotidine 20 MG ONCE ONE 01/31 1000 DC 01/31 PO 01/31 1001 1018 Heparin Sodium 6,204 UNIT BOLUS ONE 02/01 0230 DC 02/01 (Porcine) IV 02/01 0231 0241 Heparin Sodium 0 .STK-MED ONE 01/31 1917 DC (Porcine) .ROUTE Heparin Sodium 2,500 UNIT ONCE ONE 01/31 1830 DC 01/31 (Porcine) IV 01/31 1831 1942 Heparin Sodium/ 25,000 UNIT Q24H 01/31 1830 AC 01/31 Dextrose IV 1943 Dextrose/Water 500 ML Insulin Aspart 0 TIDAC 02/01 1200 UNVr SC Labetalol HCl 100 MG BID 02/01 0900 CAN PO Labetalol HCl 100 MG BID 01/31 2100 AC 02/01 PO 0808 Losartan Potassium 50 MG 2100 02/01 2100 AC PO Losartan Potassium 50 MG DAILY 01/31 1847 AC 02/01 PO 0808 Nitroglycerin 0.5 GM Q6 PRN 01/31 2345 AC 02/01 TOP 0810 Nitroglycerin 0.4 MG ONCE PRN 01/31 1830 CAN SL Nitroglycerin 0 .STK-MED ONE 01/31 1217 DC SL Nitroglycerin 0.4 MG ONCE ONE 01/31 1215 DC 01/31 SL 01/31 1216 1213 Last 24 Hrs of Lab/David Results Last 24 Hrs of Labs/Mics: Laboratory Tests 02/01/18 0650: Sodium Pending, Potassium Pending, Chloride Pending, Carbon Dioxide Pending, Anion Gap Pending, BUN Pending, Creatinine Pending, BUN/Creatinine Ratio Pending , CBC w Diff NO MAN DIFF REQ, RBC 4.59 L, MCV 89.7, MCH 30.6, MCHC 34.2, RDW 13.6, MPV 9.3, Gran % 60.6, Lymphocytes % 28.7, Monocytes % 9.2, Eosinophils % 1.1, Basophils % 0.4, Absolute Granulocytes 3.6, Absolute Lymphocytes 1.7, Absolute Monocytes 0.5, Absolute Eosinophils 0.1, Absolute Basophils 0 02/01/18 0203: APTT 40 H 01/31/18 1412: Troponin I < 0.01 01/31/18 1020: Urine Opiates Screen < 100, Methadone Screen < 40, Barbiturate Screen < 60, Ur Phencyclidine Scrn < 6.00, Amphetamines Screen < 100, U Benzodiazepines Scrn < 85, Urine Cocaine Screen < 50, Urine Cannabis Screen < 5.00, Urine Color YEL, Urine Clarity CLEAR, Urine pH 6.5, Ur Specific [place] 1.020, Urine Protein NEG, Urine Ketones NEG, Urine Nitrite NEG, Urine Bilirubin NEG, Urine Urobilinogen 0.2, Ur Leukocyte Esterase NEG, Ur Microscopic EXAM NOT REQUIRED, Urine Hemoglobin NEG, Urine Glucose NEG 01/31/18 1015: D-Dimer High Sensitivty 208 01/31/18 0954: Anion Gap 12, Estimated GFR > 60, BUN/Creatinine Ratio 20.0, Glucose 215 H, Calcium 9.4, Magnesium 2.0, Total Bilirubin 0.7, AST 18, ALT 34, Alkaline Phosphatase 70, Troponin I < 0.01, Vev-G-Pmiugjkenph Pept 28.1, Total Protein 7.0, Albumin 4.2, Globulin 2.8, Albumin/Globulin Ratio 1.5, Lipase 114, TSH &T3 &Free T4 Intrp 0.705, CBC w Diff NO MAN DIFF REQ, RBC 4.65 L, MCV 89.9, MCH 30.8, MCHC 34.2, RDW 13.2, MPV 8.6, Gran % 69.8, Lymphocytes % 22.7, Monocytes % 6.4, Eosinophils % 0.8, Basophils % 0.3, Absolute Granulocytes 4.2, Absolute Lymphocytes 1.4, Absolute Monocytes 0.4, Absolute Eosinophils 0, Absolute Basophils 0 Assessment/Plan Assessment: Patient is a 47-year-old male with a PMH significant for obesity, FRANCES on CPAP, HTN, borderline diabetes diet controlled who presented to the [facility] ED complaining of severe chest pain. #Chest pain Cannot rule out unstable angina at this time, other possible differential includes esophageal spasm Troponin EKGs were negative for signs of ischemia -Continue IV heparin -Continue aspirin 162 mg, clopidogrel 300 mg, labetalol 100 mg, atorvastatin 40 mg, Losartan 50 mg -Follow-up echocardiogram -Patient will need cardiac catheterization versus stress test -Chest pain today relieved by nitroglycerin #Borderline DM with hyperglycemia today Patient reports diet controlling at home, blood sugars remain elevated -Follow-up hemoglobin A1c #Chronic medical problems -Continue current medication regimen Diet: Diabetic diet DVT prophylaxis: IV heparin, Alps CODE STATUS: full code Problem List: 1. Chest pain Pain Ratin Pain Location: none Pain Goal: Remain pain free Pain Plan: pain pathway Tomorrow's Labs & Rationales: cbc, bep Valeriy Woodard MD 02/01/18 1356: Attending MD Review Statement Attending Statement Attending MD Statement: examined this patient, discuss w/resident/PA/PHARMACEUTICAL OPERATOR, agreed w/resident/PA/PHARMACEUTICAL OPERATOR, reviewed EMR data (avail), amended to note Attending Assessment/Plan: The patient was seen and discussed with house staff. Chest pain relieved post placing nitropaste. Troponins negative. Await ECHO and cardiology follow-up.
[2018-02-01 09:43] LABS: PTT 68 SEC (25-37)
[2018-02-01 14:00] VITALS: BP 124/60
--- NOTE | 2018-02-01 20:01 | PN- Cardiology ---
Subjective Subjective: Feels significantly improved after the initiation of long-acting nitrates. Objective Vital Signs and I&Os Vital Signs Date Time Temp Pulse Resp B/P B/P Pulse O2 O2 Flow FiO2 Mean Ox Delivery Rate 02/01 1400 98.2 60 20 124/60 98 02/01 0808 60 104/68 02/01 0808 60 104/68 02/01 0600 98.6 60 18 104/68 98 01/31 2246 98.2 61 18 116/74 99 Room Air 01/31 2138 98.0 57 16 113/76 99 Room Air 01/31 2134 57 113/76 01/31 2134 57 113/76 Intake & Output 02/01 1600 02/01 0800 02/01 0000 01/31 1600 01/31 0800 01/31 0000 Intake Total 710 603 Output Total 700 650 Balance 10 -47 Intake, IV 260 483 Intake, Oral 450 120 Output, Urine 700 650 Patient 228 lb 228 lb Weight Weight Bed scale Reported by Patient Measurement Method Physical Exam: Well-developed, overweight middle-aged male in no acute distress. Vital signs: See above. Neck: No JVD, no bruits. Lungs: Clear to auscultation bilaterally. Heart: S1, S2 with no murmur, gallop, or rub appreciated. PMI fifth ICS at [facility]. Abdomen: Soft, nontender, positive bowel sounds. Extremities: No edema. Current Medications: Current Medications Sig/Edgardo Start time Last Medication Dose Route Stop Time Status Admin Acetaminophen 500 MG Q6P PRN 01/31 1830 AC 02/01 PO 1538 Aspirin 162 MG DAILY 02/01 0900 AC 02/01 PO 0807 Atorvastatin Calcium 40 MG 1700 02/01 1700 AC 02/01 PO 1538 Clopidogrel Bisulfate 75 MG DAILY 02/01 0900 CAN PO Heparin Sodium 10,000 UNIT .STK-MED ONE 02/01 0345 DC (Porcine) IV 02/01 0346 Heparin Sodium 6,204 UNIT BOLUS ONE 02/01 0230 DC 02/01 (Porcine) IV 02/01 0231 0241 Heparin Sodium/ 25,000 UNIT Q24H 01/31 1830 AC 02/01 Dextrose IV 1539 Dextrose/Water 500 ML Insulin Aspart 0 TIDAC 02/01 1200 AC SC Labetalol HCl 100 MG BID 02/01 0900 CAN PO Labetalol HCl 100 MG BID 042099 02/01 PO 0808 Losartan Potassium 50 MG 2100 02/01 2100 AC PO Losartan Potassium 50 MG DAILY 01/31 1847 02/01 PO 0808 Nitroglycerin 0.5 GM Q6 PRN 01/31 2345 02/01 TOP 0810 Results Last 48 Hrs of Labs/Mics: Laboratory Tests 02/01/18 0912: APTT 68 H 02/01/18 0650: Anion Gap 12, Estimated GFR > 60, BUN/Creatinine Ratio 15.6, Hemoglobin A1c Pending, CBC w Diff NO MAN DIFF REQ, RBC 4.59 L, MCV 89.7, MCH 30.6, MCHC 34.2, RDW 13.6, MPV 9.3, Gran % 60.6, Lymphocytes % 28.7, Monocytes % 9.2, Eosinophils % 1.1, Basophils % 0.4, Absolute Granulocytes 3.6, Absolute Lymphocytes 1.7, Absolute Monocytes 0.5, Absolute Eosinophils 0.1, Absolute Basophils 0 02/01/18 0203: APTT 40 H 01/31/18 1412: Troponin I < 0.01 01/31/18 1020: Urine Opiates Screen < 100, Methadone Screen < 40, Barbiturate Screen < 60, Ur Phencyclidine Scrn < 6.00, Amphetamines Screen < 100, U Benzodiazepines Scrn < 85, Urine Cocaine Screen < 50, Urine Cannabis Screen < 5.00, Urine Color YEL, Urine Clarity CLEAR, Urine pH 6.5, Ur Specific [place] 1.020, Urine Protein NEG, Urine Ketones NEG, Urine Nitrite NEG, Urine Bilirubin NEG, Urine Urobilinogen 0.2, Ur Leukocyte Esterase NEG, Ur Microscopic EXAM NOT REQUIRED, Urine Hemoglobin NEG, Urine Glucose NEG 01/31/18 1015: D-Dimer High Sensitivty 208 01/31/18 0954: Anion Gap 12, Estimated GFR > 60, BUN/Creatinine Ratio 20.0, Glucose 215 H, Calcium 9.4, Magnesium 2.0, Total Bilirubin 0.7, AST 18, ALT 34, Alkaline Phosphatase 70, Troponin I < 0.01, Vir-X-Rolauxnfuno Pept 28.1, Total Protein 7.0, Albumin 4.2, Globulin 2.8, Albumin/Globulin Ratio 1.5, Lipase 114, TSH &T3 &Free T4 Intrp 0.705, CBC w Diff NO MAN DIFF REQ, RBC 4.65 L, MCV 89.9, MCH 30.8, MCHC 34.2, RDW 13.2, MPV 8.6, Gran % 69.8, Lymphocytes % 22.7, Monocytes % 6.4, Eosinophils % 0.8, Basophils % 0.3, Absolute Granulocytes 4.2, Absolute Lymphocytes 1.4, Absolute Monocytes 0.4, Absolute Eosinophils 0, Absolute Basophils 0 01/31/18 0026: Troponin I < 0.01 Assessment/Plan Assessment/Plan 47-y-h-m-w/ hx of obesity, FRANCES on CPAP, HTN, HLD, and "borderline" DM who presented to the ED today 01/31/2018 after experiencing severe SSCP w/ radiation to the L side of his neck, L shoulder, and down his L arm into his w/ assoc diaphoresis and mild SOB that has been progressive over the past couple of weeks with increasing frequency, intensity, and duration that improved following the administration of SL NTG 0.4 in the ED. Fortunately, he is feeling much improved following the addition of long-acting nitrates to his medical regimen, has had no acute electrocardiographic changes, or evidence of myocardial necrosis. Recommendations: * Continue on telemetry and follow up with an ECG with any further chest discomfort. * Continue his present cardiac regimen including topical nitrates with a 10-12 hour nitrate free interval to prevent tolerance. * Hold tonight's and tomorrow mornings beta keshav so we are able to get an acceptable double product on his treadmill stress test. * Continue DVT prophylaxis. Continue telemetry? Yes
[2018-02-01 21:55] LABS: PTT 61 SEC (25-37)
[2018-02-01 23:19] VITALS: BP 102/64
[2018-02-02 06:00] VITALS: BP 110/86
--- NOTE | 2018-02-02 07:34 | PN- Housestaff ---
[facility] Subjective Follow-up For: Chest pain Tele-Events Since Last Visit: Sinus rhythm with heart rate 5362 Subjective: No overnight events. Patient remained afebrileand examined this morning. He reported having chest tightness 5/10 with palpitation. Stat EKG was ordered. Patient is nothing by mouth and going for stress test today for risk stratification. He denied any shortness of breath, nausea, vomiting, sweating, abdominal pain dysuria. Review of Systems Constitutional: Denies: chills, fever. EENTM: Reports: no symptoms. Cardiovascular: Reports: chest pain, palpitations. Respiratory: Denies: cough, short of breath, sputum production. Gastrointestinal: Denies: abdominal pain, constipation, diarrhea, nausea. Genitourinary: Reports: no symptoms. Musculoskeletal: Reports: no symptoms. Neurological/Psychological: Reports: no symptoms. Objective Last 24 Hrs of Vital Signs/I&O Vital Signs Date Time Temp Pulse Resp B/P B/P Pulse O2 O2 Flow FiO2 Mean Ox Delivery Rate 02/02 0600 98.6 66 20 110/86 99 02/01 2319 98.4 61 20 102/64 100 Room Air 02/01 2200 95 Room Air 02/01 2151 61 102/64 02/01 2151 61 102/64 02/01 1400 98.2 60 20 124/60 98 Intake & Output 02/02 1600 02/02 0800 02/02 0000 Intake Total 325.6 232.8 Output Total Balance 325.6 232.8 Intake, IV 225.6 112.8 Intake, Oral 100 120 Patient 227 lb Weight Physical Exam General Appearance: Alert, Oriented X3, Cooperative Skin: No Rashes Skin Temp/Moisture Exam: Warm/Dry Sepsis Skin Exam (color): Normal for Ethnicity HEENT: Atraumatic, PERRLA, EOMI Neck: Supple Cardiovascular: Normal S1, Normal S2 Lungs: Clear to Auscultation Abdomen: Soft, No Tenderness Neurological: Normal Speech, Strength at 5/5 X4 Ext, Normal Tone Extremities: No Edema Assessment/Plan Assessment: 47 YO M with PMH significant for obesity, FRANCES on CPAP, HTN, borderline diabetes diet controlled who presented to the [facility] ED complaining of severe chest pain. Chest pain: -Patient may have unstable angina as patient reported that his pain is relieved with nitroglycerin. -Troponin EKGs were negative for signs of ischemia -Continue IV heparin -Continue aspirin 162 mg, clopidogrel 300 mg, labetalol 100 mg, atorvastatin 40 mg, Losartan 50 mg -Echocardiogram is pending -Patient is going for stress test today for RISK stratification. History of hypertension: -Continue his home medications Borderline DM: -Patient reports diet controlling at home, blood sugars remain elevated -HbA1c is 5.8 Chronic medical problems: -Continue current medication regimen DVT prophylaxis: Mechanical and patient is on IV heparin CODE STATUS: full code Problem List: 1. Chest pain Pain Ratin Pain Location: CHEST Pain Goal: Remain pain free Pain Plan: PAIN PATHWAY, Tomorrow's Labs & Rationales: Adore Awan MD 02/02/18 1142: Attending MD Review Statement Attending Statement Attending MD Statement: examined this patient, discuss w/resident/PA/LAMP SHADE MAKER, agreed w/resident/PA/LAMP SHADE MAKER, reviewed EMR data (avail) Attending Assessment/Plan: 47M PMH obesity, FRANCES on CPAP, HTN, HLD admitted for severe left sided chest pain radiating to left arm, present at rest, worse with exertion, associated with palpitations and mild SOB. Currently asymptomatic but experiences pain with exertion. No EKG changes, troponin negative. 1. Unstable angina Plan - Continue on telemetry - Continue ASA, statin, b-keshav, nitro - Continue heparin drip - Stress test today - Cardiology consult - Continue home medications
--- NOTE | 2018-02-02 08:57 | PN- Student ---
Subjective Subjective: No overnight events. Patient seen and examined this morning. He reported having chest tightness with radiation to the left shoulder. Patient describe that movement and leaning forward kind of cause more thighness in the chest. Stat EKG was ordered. Patient is NPO for stress test today. He denied any shortness of breath, nausea, vomiting, sweating, abdominal pain dysuria. Objective Objective: Vitals: T= 98.4 HR= 61 RR= 20 BP= 102/64 O2Sat= 100 I&O: I= 1545 O= 1350 B= 195 PE: General= patient alert and oriented without acute distress. Resting in bed uncomfortable. HEENT: nontraumatic, normocephalic, EOMI, moist oral mucosa CVS= normal S1 and S2 Lungs= clear bilateral Abdo= sort, nontender, nondistended Extremities= warm, palpable pulses, no edema Results Results: Laboratory Tests 02/02/18 0905: APTT 74 H Assessment/Plan Assessment: 47 y/o M with PMHx of obesity, FRANCES on CPAP, HTN, borderline diabetes diet controlled, cervical disc herniation who presented to the ED complaining of severe chest pain associated with diaphoresis, left-neck pain & tingling that worsen with inspiration and sometime wake him up in the middle of the night. Denied alleviation facotrs but responded to nitro in the ED. Plan: Chest pain -Probably unstable angina (pain is relieved with nitroglycerin) -Negative troponin and EKGs -Cont. IV heparin -Cont. aspirin 162 mg -Cont. clopidogrel 300 mg -Cont. labetalol 100 mg, atorvastatin 40 mg and Losartan 50 mg -Echocardiogram is pending -Patient is NPO for stress test today -ECHO: Mildly dilated IVC History of hypertension -Continue his home medications Borderline DM -Patient reports diet controlling at home, blood sugars remain elevated -HbA1c is pending DVT prophylaxis: Mechanical and patient is on IV heparin
[2018-02-02 09:51] LABS: PTT 74 SEC (25-37)
--- NOTE | 2018-02-02 10:57 | ECHOCARDIOGRAM REPORT ---
VICTOR MANUEL JOHNSTON Age: 47 : 1970 Gender: M Exam Date: 02/01/2018 11:05 Exam Location: [place] Ht (in): 70 Wt (lb): 228 BSA: 2.29 BP: 104 / 68 Ordering Physician: Jaspal Golden MD Referring Physician: Ap Armendariz MD Technologist: Ayesha Phan [facility] Room Number: [id number] Indications: CHEST PAIN Rhythm: Sinus Technical Quality: Fair FINDINGS Left Ventricle Normal size left ventricle. Mild concentric left ventricular hypertrophy. Normal left ventricular wall motion. Normal left ventricular ejection fraction visually estimated at 60%. Normal left ventricular diastolic filling pattern for age. Right Ventricle The right ventricle is normal in size and function. Right Atrium The right atrium is normal in size. Left Atrium The left atrium is normal in size. The interatrial septum is intact. Mitral Valve Mild mitral annular calcification. Structurally normal mitral valve. No mitral regurgitation. Aortic Valve Structurally normal aortic valve without significant sclerosis or stenosis. There is no aortic regurgitation. Tricuspid Valve Structurally normal tricuspid valve. Trace tricuspid regurgitation. No evidence of pulmonary hypertension. Right ventricular systolic pressure estimated to be within the normal range at 22 mmHg. Pulmonic Valve Pulmonic valve not well visualized, grossly normal. Trace pulmonic regurgitation. Pericardium No pericardial effusion. Great Vessels Normal size aortic root. Mildly dilated IVC. CONCLUSIONS Normal size left ventricle. Mild concentric left ventricular hypertrophy. Normal left ventricular wall motion. Normal left ventricular ejection fraction visually estimated at 60%. Normal left ventricular diastolic filling pattern for age. The right ventricle is normal in size and function. Normal atrial size. Trace tricuspid regurgitation. No evidence of pulmonary hypertension. Trace pulmonic regurgitation. Mildly dilated IVC. Ap Armendariz M.D. (Electronically Signed) Final Date: 02 February 2018 10:57 MEASUREMENTS (Male / Female) Normal Values 2D ECHO LV Diastolic Diameter PLAX 4.5 cm 4.2 - 5.9 / 3.9 - 5.3 cm LV Systolic Diameter PLAX 3.0 cm 2.1 - 4.0 cm LV Fractional Shortening PLAX 33.3 % 25 - 46 % LV Ejection Fraction 2D Teich 62.1 % IVS Diastolic Thickness 1.1 cm LVPW Diastolic Thickness 1.2 cm LV Relative Wall Thickness 0.5 RV Internal Dim ED PLAX 3.0 cm 1.9 - 3.8 cm LVOT Diameter 2.3 cm Aortic Root Diameter 3.1 cm LA Systolic Diameter LX 4.0 cm 3.0 - 4.0 / 2.7 - 3.8 cm LA Volume 47.0 cm 18 - 58 / 22 - 52 cm Ascending Aorta Diameter 3.0 cm DOPPLER AV Peak Velocity 123.0 cm/s AV Peak Gradient 6.1 mmHg AV Mean Velocity 81.5 cm/s AV Mean Gradient 3.0 mmHg AV Velocity Time Integral 26.3 cm LVOT Peak Velocity 88.7 cm/s LVOT Peak Gradient 3.1 mmHg LVOT Mean Velocity 62.0 cm/s LVOT Mean Gradient 2.0 mmHg LVOT Velocity Time Integral 19.8 cm LVOT Stroke Volume 82.3 cm AV Area Cont Eq vti 3.1 cm AV Area Cont Eq pk 3.0 cm MV Peak Velocity 73.3 cm/s MV Peak Gradient 2.1 mmHg MV Mean Velocity 41.1 cm/s MV Mean Gradient 1.0 mmHg Mitral E Point Velocity 56.6 cm/s Mitral A Point Velocity 45.6 cm/s Mitral E to A Ratio 1.2 MV PHT Velocity 76.0 cm/s MV Deceleration [place] 290.0 cm/s MV Pressure Half Time 78.6 ms MV Area PHT 2.8 cm MV Deceleration Time 239.0 ms TR Peak Velocity 205.0 cm/s TR Peak Gradient 16.8 mmHg Right Atrial Pressure 5.0 mmHg Pulmonary Artery Systolic Pressu 21.8 mmHg Right Ventricular Systolic Press 21.8 mmHg PV Peak Velocity 109.0 cm/s PV Peak Gradient 4.8 mmHg PV Mean Velocity 77.5 cm/s PV Mean Gradient 3.0 mmHg PV Velocity Time Integral 23.5 cm LV E' Lateral Velocity 11.3 cm/s Mitral E to LV E' Lateral Ratio 5.0 LV E' Septal Velocity 8.4 cm/s Mitral E to LV E' Septal Ratio 6.8
--- NOTE | 2018-02-02 14:17 | IV DIPYRIDAMOLE NUCLEAR STRESS ---
Clinical Diagnosis: recurrent chest pain Visual Stylist: Lisa Nance Date of Service: 02/02/18 IV DIPYRIDAMOLE INFUSED: 60 mg IV AMINOPHYLLINE INFUSED: 125 mg PATIENT WEIGHT: 227 lbs INTERPRETATION: The patient's baseline EKG revealed sinus rhythm and minor nondiagnostic inferior T wave abnormalities at 57 BPM. Baseline B/P 122/80. The patient received 60 mg of dipyridamole infused intravenously over a 4 minute period. TC99M Myoview was injected after dipyridamole infusion. The patient complained of chest burning, abdominal discomfort, headache, palpitations that improved promptly after the administration of IV Aminophylline 125mg x1. There were no EKG changes seen following pharmacologic infusion. Arrhythmias: none IMPRESSION: The test was supervised by the interpreting Ophthalmic Surgeon, who was in attendance during the entire test. No EKG evidence of stress induced myocardial ischemia. See separately dictated Nuclear Report.
[2018-02-02 14:22] VITALS: BP 124/80
--- NOTE | 2018-02-02 15:40 | Discharge Summary ---
Visit Information Visit Dates Admission Date: 01/31/18 Discharge Date: 02/03/18 Hospital Course Course Attending Physician: Adore Platt MD Primary Care Physician: Paddy Reeder MD Hospital Course: 47 YO M with PMH significant for obesity, FRANCES on CPAP, HTN, borderline diabetes diet controlled who presented to the [facility] ED complaining of severe chest pain. ED course: Vitals: Temperature 96.7, pulse 59, respiratory rate 14, blood pressure 137/80, oxygen saturation 97% on room air. Labs: WBC count 6.1, hemoglobin 14.3, hematocrit 41.8, platelet count 167, sodium 140, potassium 4.2, BUN 16, creatinine 0.8, glucose 2:15, BUNs/creatinine ratio 20.0, anion gap 12, troponin less than 0.01, AST 18, ALT 34 Chest pain: Patient was admitted with chest pain probably due to unstable angina. Serial EKGs and troponins remain negative for any acute ischemic injury. Cardiology consult was obtained and recommendations were followed. Initially on admission patient was given IV heparin, aspirin, clopidogrel according to ACS protocol. Later on cardiology recommended inpatient cardiac stress test to risk stratify him. Nuclear stress test was done that remained negative for cardiac ischemia. Echocardiogram was done that showed ejection fraction 60% with mild LVH. Later on cardiology recommended to discharge the patient on Imdur along with his rest of home medications. Atorvastatin was added to his medications considering his borderline elevated cholesterol and LDL. Patient was instructed to follow cardiology as outpatient for further recommendations or any test in future. Incidental findings on chest CT: Patient has multiple bilateral noncalcified pulmonary nodules. Patient will follow up outpatient primary care physician for further recommendations for follow-up in future. Patient also having bilateral nonobstructing renal stones and right renal cortical cyst. History of hypertension: His home medications for hypertension were continued. Borderline DM: -Patient reports diet controlling at home. During hospital stay Accu-Cheks were checked and he was put on insulin NovoLog according to sliding scale considering his elevated blood sugar level on admission. During the hospital stay his blood sugar remained under control. His HbA1c was 5.8 DVT prophylaxis: Mechanical and patient is on IV heparin CODE STATUS: full code Allergies: Coded Allergies: No Known Allergies (08/05/17) Significant Procedures: Cardiac stress test: EXAM TYPE: NUC - MYOCARDIAL PERFUSION IMAGING PERSANTINE STRESS AND RESTING SPECT MYOCARDIAL PERFUSION IMAGING STUDY WITH GATED SPECT IMAGES: CLINICAL INDICATION: Chest pain. PROCEDURE: Regional myocardial perfusion was assessed using a 1 day protocol. Stress images were obtained on 02/02/2018 following the intravenous administration of 24.0 mCi Tc 99m Myoview. Stress consisted of 60 mg Persantine given intravenously. Following the sestamibi injection, 125 mg aminophylline was given intravenously. Rest images were obtained 02/02/2018 following the intravenous administration of 40.0 mCi Technetium 99m Myoview. Single photon emission tomographic (SPECT) images were obtained. SPECT images were acquired in a 64 x 64 matrix of 64 projections over 180 degrees. These were reconstructed into standard short axis, horizontal and vertical long axis cardiac projections. FINDINGS: The post stress images demonstrate the left ventricular chamber to be normal in size. There is homogeneous distribution of activity in the left ventricular myocardium with no regions of abnormally decreased activity noted. The resting images also demonstrate homogeneous distribution of activity in the left ventricular myocardium, and are not significantly changed from the post stress images. The images were obtained using a gated SPECT technique, which permits visualization of wall motion and calculation of the left ventricular ejection fraction. No left ventricular wall motion abnormalities are noted on either the stress or resting study. The calculated left ventricular ejection fraction is 60% on the stress study. No previous study is available for comparison. IMPRESSION: Normal Persantine stress and resting myocardial perfusion study with normal left ventricular wall motion and ejection fraction. Pertinent Lab Results: Chest x-ray on 01/31/2018; IMPRESSION: No acute cardiopulmonary disease, unchanged since prior study. Please note that previous CT detected several subcentimeter pulmonary nodules are not reproduced in the current study likely related to difference in technique. Abdominal/pelvic CT scan on 01/31/2018: IMPRESSION: No evidence of aortic aneurysm or dissection in the chest or abdomen. No acute PE. Multiple bilateral noncalcified pulmonary nodules. Follow up based on Fleischner criteria is suggested. Bilateral nonobstructing renal stones. Right renal cortical cyst. Various management parameters for solitary pulmonary nodules are in the literature. According to the Fleischner Society, recommendations for pulmonary nodules are as follows: Nodule size < or = to 4 mm in LOW RISK PATIENTS: No follow up needed. Nodule size < or = to 4 mm in HIGH RISK PATIENTS: Follow up CT at 12 months; if unchanged, no further follow up. Nodule size > 4-6 mm in LOW RISK PATIENTS: Follow up CT at 12 months; if unchanged, no further follow up. Nodule size > 4-6 mm in HIGH RISK PATIENTS: Initial follow up CT at 6-12 months, then at 18-24 months if no change. Nodule size > 6-8 mm in LOW RISK PATIENTS: Initial follow up CT at 6-12 months, then at 18-24 months if no change. Nodule size > 6-8 mm in HIGH RISK PATIENTS: Initial follow up CT at 3-6 months, then 9-12 months and 24 months if no change. Nodule size > 8 mm in LOW RISK PATIENTS: Follow up CT at around 3, 9, and 24 months, dynamic contrast-enhanced CT, PET, and/or biopsy. Nodule size > 8 mm in HIGH RISK PATIENTS: Same as for low-risk patients. Chest CTA on 01/31/2018: IMPRESSION: No evidence of aortic aneurysm or dissection in the chest or abdomen. No acute PE. Multiple bilateral noncalcified pulmonary nodules. Follow up based on Fleischner criteria is suggested. Bilateral nonobstructing renal stones. Right renal cortical cyst. Echocardiogram on 01/31/2018: CONCLUSIONS Normal size left ventricle. Mild concentric left ventricular hypertrophy. Normal left ventricular wall motion. Normal left ventricular ejection fraction visually estimated at 60%. Normal left ventricular diastolic filling pattern for age. The right ventricle is normal in size and function. Normal atrial size. Trace tricuspid regurgitation. No evidence of pulmonary hypertension. Trace pulmonic regurgitation. Mildly dilated IVC. Disposition Summary Disposition Principal Diagnosis: Chest pain Additional Diagnosis: History of hypertension History of borderline diabetes History of hyperlipidemia Discharge Disposition: home or self care Discharge Instructions General Discharge Information Code Status: Full Code Patient's Diet: Heart healthy diet Patient's Activity: Self-limited Follow-Up Instructions/Appts: Follow-up with your primary care physician in one week Follow-up with your container filler in 1 week Medications at Discharge Discharge Medications: Continue taking these medications: Labetalol HCl (Labetalol HCl) 100 MG TABLET 1 Tablet ORAL TWICE DAILY Comments: Last Taken:02/03/18 Time: 9:00 AM Losartan Potassium (Losartan Potassium) 50 MG TABLET 1 Tablet ORAL TAKE AT BEDTIME Comments: Last Taken:02/03/18 Time: 9:00 AM Aspirin (Ecotrin*) 81 MG TABLET.DR 1 Tablet ORAL DAILY Comments: Last Taken:02/03/18 Time: 9:00 AM Ascorbate Calcium (Vitamin C) (Unknown Strength) TABLET Unknown Dose ORAL DAILY Comments: NOT GIVEN WHILE IN HOSPITAL Cholecalciferol (Vitamin D3) (Vitamin D) (Unknown Strength) TABLET Unknown Dose ORAL DAILY Comments: DID NOT RECEIVE WHILE IN HOSPITAL Cyanocobalamin (Vitamin B-12) (Unknown Strength) TABLET Unknown Dose ORAL DAILY Comments: DID NOT RECEIVE WHILE IN HOSPITAL [place]-3 Fatty Acids/Fish Oil (Fish Oil 1,000 MG Softgel) (Unknown Strength) CAPSULE Unknown Dose ORAL DAILY Comments: DID NOT RECEIVE WHILE IN HOSPITAL Flaxseed Oil (Flax Oil) (Unknown Strength) CAPSULE Unknown Dose ORAL DAILY Comments: DID NOT RECEIVE WHILE IN HOSPITAL Start taking the following new medications: Isosorbide Mononitrate (Isosorbide Mononitrate ER) 30 MG TAB.ER.24H 1 Tablet ORAL DAILY Qty = 30 No Refills Instructions: . Comments: Last Taken:02/03/18 Time: 12:00 PM Atorvastatin Calcium (Atorvastatin Calcium) 40 MG TABLET 1 Tablet ORAL DAILY Qty = 30 No Refills Comments: Last Taken:02/02/18 Time: 5:00 PM Copies To: Lilli SALDAÑA,Paddy Armendariz MD,[place] [facility]
--- NOTE | 2018-02-02 17:51 | NUCLEAR MEDICINE REPORT ---
PERSANTINE STRESS AND RESTING SPECT MYOCARDIAL PERFUSION IMAGING STUDY WITH GATED SPECT IMAGES: CLINICAL INDICATION: Chest pain. PROCEDURE: Regional myocardial perfusion was assessed using a 1 day protocol. Stress images were obtained on 02/02/2018 following the intravenous administration of 24.0 mCi Tc 99m Myoview. Stress consisted of 60 mg Persantine given intravenously. Following the sestamibi injection, 125 mg aminophylline was given intravenously. Rest images were obtained 02/02/2018 following the intravenous administration of 40.0 mCi Technetium 99m Myoview. Single photon emission tomographic (SPECT) images were obtained. SPECT images were acquired in a 64 x 64 matrix of 64 projections over 180 degrees. These were reconstructed into standard short axis, horizontal and vertical long axis cardiac projections. FINDINGS: The post stress images demonstrate the left ventricular chamber to be normal in size. There is homogeneous distribution of activity in the left ventricular myocardium with no regions of abnormally decreased activity noted. The resting images also demonstrate homogeneous distribution of activity in the left ventricular myocardium, and are not significantly changed from the post stress images. The images were obtained using a gated SPECT technique, which permits visualization of wall motion and calculation of the left ventricular ejection fraction. No left ventricular wall motion abnormalities are noted on either the stress or resting study. The calculated left ventricular ejection fraction is 60% on the stress study. No previous study is available for comparison. IMPRESSION: Normal Persantine stress and resting myocardial perfusion study with normal left ventricular wall motion and ejection fraction.
--- NOTE | 2018-02-02 18:18 | PN- Cardiology ---
Subjective Subjective: Chest discomfort earlier today prior to stress testing. Rhythms stable on telemetry. Objective Vital Signs and I&Os Vital Signs Date Time Temp Pulse Resp B/P B/P Pulse O2 O2 Flow FiO2 Mean Ox Delivery Rate 02/02 1422 98.7 65 20 124/80 96 Room Air 02/02 0600 98.6 66 20 110/86 99 02/01 2319 98.4 61 20 102/64 100 Room Air 02/01 2200 95 Room Air 02/01 2151 61 102/64 02/01 2151 61 102/64 Intake & Output 02/02 1600 02/02 0800 02/02 0000 02/01 1600 02/01 0800 02/01 0000 Intake Total 260 325.6 232.8 710 603 Output Total 700 650 Balance 260 325.6 232.8 10 -47 Intake, IV 10 225.6 112.8 260 483 Intake, Oral 250 100 120 450 120 Output, Urine 700 650 Patient 227 lb 228 lb Weight Weight Bed scale Measurement Method Physical Exam: Well-developed, overweight middle-aged male in no acute distress. Vital signs: See above. Neck: No JVD, no bruits. Lungs: Clear to auscultation bilaterally. Heart: S1, S2 with no murmur, gallop, or rub appreciated. PMI fifth ICS at [facility]. Abdomen: Soft, nontender, positive bowel sounds. Extremities: No edema. Current Medications: Current Medications Sig/Edgardo Start time Last Medication Dose Route Stop Time Status Admin Acetaminophen 500 MG Q6P PRN 01/31 1830 AC 02/01 PO 1538 Aspirin 162 MG DAILY 02/01 0900 AC 02/02 PO 0808 Atorvastatin Calcium 40 MG 1700 02/01 1700 AC 02/01 PO 1538 Dipyridamole 60 MG ONE 02/02 0000 NR Dextrose/Water 28 ML IV 02/02 2359 Heparin Sodium/ 25,000 UNIT Q24H 01/31 1830 AC 02/01 Dextrose IV 1539 Dextrose/Water 500 ML Insulin Aspart 0 TIDAC 02/01 1200 DC SC Insulin Human Regular 0 Q6 02/02 0141 AC SC Labetalol HCl 100 MG BID 01/31 2100 AC 02/01 PO 2151 Losartan Potassium 50 MG 2100 02/01 2100 AC 02/01 PO 215 Losartan Potassium 50 MG DAILY 01/31 1847 AC 02/02 PO 0808 Nitroglycerin 0.5 GM Q12P PRN 02/01 2245 AC TOP Nitroglycerin 0.5 GM Q6 PRN 01/31 2345 DC 02/01 TOP 0810 Results Last 48 Hrs of Labs/Mics: Laboratory Tests 02/02/18 0905: APTT 74 H 02/01/18 2115: APTT 61 H 02/01/18 0912: APTT 68 H 02/01/18 0650: Anion Gap 12, Estimated GFR > 60, BUN/Creatinine Ratio 15.6, Hemoglobin A1c 5.8, CBC w Diff NO MAN DIFF REQ, RBC 4.59 L, MCV 89.7, MCH 30.6, MCHC 34.2, RDW 13.6 , MPV 9.3, Gran % 60.6, Lymphocytes % 28.7, Monocytes % 9.2, Eosinophils % 1.1, Basophils % 0.4, Absolute Granulocytes 3.6, Absolute Lymphocytes 1.7, Absolute Monocytes 0.5, Absolute Eosinophils 0.1, Absolute Basophils 0 02/01/18 0203: APTT 40 H Recent Imaging Studies: Pharmacologic (dipyridamole) stress test 02/02/2018: Normal Persantine stress and resting myocardial perfusion study with normal left ventricular wall motion and ejection fraction. Assessment/Plan Assessment/Plan 47-y-h-m-w/ hx of obesity, FRANCES on CPAP, HTN, HLD, and "borderline" DM who presented to the ED today 01/31/2018 after experiencing severe SSCP w/ radiation to the L side of his neck, L shoulder, and down his L arm into his w/ assoc diaphoresis and mild SOB that has been progressive over the past couple of weeks with increasing frequency, intensity, and duration that improved following the administration of SL NTG 0.4 in the ED. He was feeling improved following the addition of long-acting nitrates to his medical regimen, but had some further chest discomfort this morning. He felt poorly on the stress portion of his pharmacologic stress test, but most of this was secondary to dipyridamole, as his symptoms improved following the administration of Aminophyllin. Fortunately, his nuclear imaging did not reveal any evidence of ischemia so the etiology for his recurrent chest discomfort remains unclear. Plan will be for discharge on long-acting nitrates along with the rest of his preadmission medications and he will be seen in follow-up. Continue telemetry? No
[2018-02-02 21:41] VITALS: BP 112/66
[2018-02-02 22:53] LABS: PTT 61 SEC (25-37)
[2018-02-03 06:22] VITALS: BP 118/58
--- NOTE | 2018-02-03 07:18 | PN- Housestaff ---
[place] 02/03/18 0718: Subjective Follow-up For: Chest pain Tele-Events Since Last Visit: Off telemetry Subjective: Patient remained afebrile. Seen and examined this morning. He is still complaining of chest discomfort 02/26. He denied any shortness of breath, nausea , vomiting, chills, fever, abdominal pain dysuria. His cardiac stress test is negative and possibly can be discharged today. Review of Systems Constitutional: Denies: chills, fever. EENTM: Reports: no symptoms. Cardiovascular: Reports: chest pain. Denies: palpitations. Respiratory: Denies: cough, short of breath, sputum production. Gastrointestinal: Denies: abdominal pain, constipation, diarrhea, nausea. Genitourinary: Reports: no symptoms. Musculoskeletal: Reports: no symptoms. Neurological/Psychological: Reports: no symptoms. Objective Last 24 Hrs of Vital Signs/I&O Vital Signs Date Time Temp Pulse Resp B/P B/P Pulse O2 O2 Flow FiO2 Mean Ox Delivery Rate 02/03 0622 98.8 56 20 118/58 95 02/02 2207 64 112/66 02/02 2207 64 112/66 02/02 2141 98.5 64 20 112/66 98 Room Air 02/02 1422 98.7 65 20 124/80 96 Room Air Intake & Output 02/03 0800 02/03 0000 02/02 1600 Intake Total 345.6 300 260 Output Total Balance 345.6 300 260 Intake, IV 225.6 10 Intake, Oral 120 300 250 Patient 227 lb Weight Physical Exam General Appearance: Alert, Oriented X3, Cooperative Skin: No Rashes Skin Temp/Moisture Exam: Warm/Dry Sepsis Skin Exam (color): Normal for Ethnicity HEENT: Atraumatic, PERRLA, EOMI Neck: Supple Cardiovascular: Normal S1, Normal S2 Lungs: Clear to Auscultation Abdomen: Soft, No Tenderness Neurological: Normal Speech, Strength at 5/5 X4 Ext, Normal Tone Extremities: No Edema Assessment/Plan Assessment: 47 YO M with PMH significant for obesity, FRANCES on CPAP, HTN, borderline diabetes diet controlled who presented to the [facility] ED complaining of severe chest pain. Chest pain: -Patient may have unstable angina as patient reported that his pain is relieved with nitroglycerin. -Troponin EKGs were negative for signs of ischemia -start imdur daily -Continue aspirin 81mg, labetalol 100 mg, atorvastatin 40 mg, Losartan 50 mg. we will discharge him on his home medications and will add imdur. -Echocardiogram showed ejection fraction 60% -His cardiac stress test is negative. History of hypertension: -Continue his home medications Borderline DM: -Patient reports diet controlling at home, blood sugars remain elevated -HbA1c is 5.8 Chronic medical problems: -Continue current medication regimen DVT prophylaxis: Mechanical and patient is on IV heparin CODE STATUS: full code Problem List: 1. Chest pain Pain Ratin Pain Location: chest Pain Goal: Remain pain free Pain Plan: pain pathway Tomorrow's Labs & Rationales: none Yessi SALDAÑA,Maddy 02/03/18 1500: Attending MD Review Statement Attending Statement Attending MD Statement: examined this patient, discuss w/resident/PA/COMMISSIONING EDITOR, agreed w/resident/PA/COMMISSIONING EDITOR, discussed with family, reviewed EMR data (avail), discussed with nursing, reviewed images Attending Assessment/Plan: Patient feels well and is eager to leave. I spoke to the patient and patient's at length. His nuclear stress test was negative and his echo shows mild LVH. He is going to leave on his usual regimen of labetalol, losartan and aspirin in addition with giving him long-acting nitrate Imdur with a statin. He knows that he needs follow-up with Dr. Armendariz the title i director and with his PCP. We also spoke at length about diet and exercise and the need for close follow- up.
--- NOTE | 2018-02-03 08:06 | PN- Student ---
Subjective Subjective: No acute acute events overnight. Patient seen and examined this morning. Reported feeling better and slept better even though feels tire. Complains of chest discomfort. Denied SOB, headache, nausea/vomiting, abdominal pain, dysuria , leg pain. Objective Objective: Vitals: T= 98.8 HR= 56 RR= 20 BP= 118/58 O2Sat= 95 RA I&O: I= 885 O= PE: General= patient alert and oriented without acute distress. Resting in bed. HEENT: nontraumatic, normocephalic, EOMI, moist oral mucosa CVS= normal S1 and S2 Lungs= clear bilateral Abdo= bowel sounds present, soft, nontender, nondistended Extremities= warm, palpable pulses, no edema Assessment/Plan Assessment: 47 y/o M with PMHx of obesity, FRANCES on CPAP, HTN, borderline diabetes, cervical disc herniation who presented to the ED complaining of severe chest pain associated with diaphoresis, left-neck pain & tingling that worsen with inspiration and sometime wake him up in the middle of the night. Denied alleviation factos but responded to nitro in the ED. ECHO and stress test were negative for ischemic heart. Plan: Chest pain -Probably unstable angina (pain is relieved with nitroglycerin) -Negative troponin, EKGs, ECHO, stress test for ischemic heart -Cont. aspirin 162 mg -Cont. clopidogrel 300 mg -Cont. labetalol 100 mg, atorvastatin 40 mg and Losartan 50 mg -Will add imdur 30mg PO daily History of hypertension -Continue his home medications Borderline DM -Patient reports diet controlling at home, blood sugars remain elevated -HbA1c is pending
[2018-02-03] MEDS ORDERED: ISOSORBIDE MONO30 M1 PO ×2 (09:42→10:23)
--- NOTE | 2018-02-03 10:17 | Patient Discharge Instructions ---
Discharge Instructions General Discharge Information You were seen/treated for: Chest pain Watch for these problems: Chest pain, nausea, vomiting, light headedness, palpitation and sweating. If you experience any of these symptoms come to ED or call to your primary care physician. Special Instructions: Follow up with your primary care physician in one week. Follow up with cardiology in one week and discuss about imdur dose and any further work up for chest pain in future. Diet Recommended Diet: Heart Healthy Activity Activity Self Limited: Yes Acute Coronary Syndrome Inclusion Criteria At DC or during hospital stay patient has or had the following: ACS DIAGNOSIS No Discharge Core Measures Meds if any: Prescribed or Continued at Discharge Meds if any: NOT Prescribed or Continued at Discharge Congestive Heart Failure Inclusion Criteria At DC or during hospital stay patient has or had the following: CHF DIAGNOSIS No Discharge Core Measures Meds if any: Prescribed or Continued at Discharge Meds if any: NOT Prescribed or Continued at Discharge Cerebrovascular accident Inclusion Criteria At DC or during hospital stay patient has or had the following: CVA/TIA Diagnosis No Discharge Core Measures Meds if any: Prescribed or Continued at Discharge Meds if any: NOT Prescribed or Continued at Discharge Venous thromboembolism Inclusion Criteria VTE Diagnosis No VTE Type NONE VTE Confirmed by (Test) NONE Discharge Core Measures - Per Current guidelines, there needs to be overlap - treatment for the first 5 days of Warfarin therapy. - If discharged on Warfarin prior to 5 days of - overlap therapy, the patient will need to be - assessed for post discharge needs including - *Post discharge parental anticoagulation - *Warfarin and/or parental anticoagulation education - *Follow up date to check INR post discharge At least 5 days overlap therapy as Inpatient No Meds if any: Prescribed or Continued at Discharge Note: Overlap Therapy is Warfarin and Anticoagulant Meds if any: NOT Prescribed or Continued at Discharge
[2018-02-03] MEDS ORDERED: ATORVASTATIN CA40 M1 PO (10:27)
[2018-02-03 11:52] VITALS: BP 122/70
== END 2018-02-03 13:30 | DRG 313 ==
LOC: ERH 09:10 → ERHI 15:54 → 1NO 15:54 → CANRESERV 16:51 → ENRESERV 16:51 → ENTRNSPT 22:42 → 1NO 22:58 → CMPTRNSPT 02-01 14:46 → 1NO 02-02 07:43 → ENPENDDIS 02-03 11:04 → 1NO 02-03 13:30
PROVIDERS: Internal Medicine; Physician Assistant Medical; Student in an Organized Health Care Education/Training Program
DX: R07.9 Chest pain, unspecified (principal); M50.20 Other cervical disc displacement, unspecified cervical region; N20.0 Calculus of kidney; I10 Essential (primary) hypertension; E66.9 Obesity, unspecified; Z68.32 Body mass index [BMI] 32.0-32.9, adult; G47.33 Obstructive sleep apnea (adult) (pediatric); E78.5 Hyperlipidemia, unspecified; R73.9 Hyperglycemia, unspecified
CPT/HCPCS: 1NSP; 36415; 36592; 71046; 74174; 78452; 80307; 81003; 82436; 93005; 93010; 93016; 93017; 93306; A9502; J1245; J1644; J3490; J7060